=== PATIENT | male | born 1960 | race Caucasian/White ===

== ENCOUNTER 2016-11-09 09:57 | Emergency (ER) | payer SELFPAY ==
[~2016-11-09] VITALS: Ht 177.8 cm; Wt 70.1 kg
[2016-11-09 10:11] LABS: GLUCOSE,POINT OF CARE 115 MG/DL (70-110)
[2016-11-09 14:22] VITALS: BP 139/76
== END 2016-11-09 15:16 | disposition home or self-care (01) ==
LOC: EMS 10:00 → EEVIPCON 10:00 → EMS 15:16
DX: T51.0X1A Toxic effect of ethanol, accidental (unintentional), initial encounter (principal); E11.9 Type 2 diabetes mellitus without complications; F17.210 Nicotine dependence, cigarettes, uncomplicated
CPT/HCPCS: 36415; 82962; 99283; G0480